=== PATIENT | female | born 1975 | race Two or more races ===

== ENCOUNTER → 2025-02-08 | Outpatient (CLI) | payer BC, SELFPAY ==
[2025-02-08 09:21] LABS: Collection Type, Urine Clean Catch
[2025-02-08 09:40] LABS: Basophils # (Auto) 0.1 Thou/mm3 (0.0-0.2); Basophils % (Auto) 1 % (0-2.5); Eosinophils # (Auto) 0.2 Thou/mm3 (0.0-0.5); Eosinophils % (Auto) 3 % (0-10); Hematocrit 43.4 % (36.0-46.0); Hemoglobin 15.0 g/dL (12.0-16.0); Immature Granulocytes Auto 0.01 Thou/mm3 (0.00-0.00); Lymphocytes # (Auto) 2.3 Thou/mm3 (1.0-4.8); Lymphocytes % (Auto) 36 % (10-50); Mean Corpuscular HGB Conc 34.6 g/dl (31.0-37.0); Mean Corpuscular Hemoglobin 30.2 pg (25.0-35.0); Mean Corpuscular Volume 88 fL (80-100); Monocytes # (Auto) 0.6 Thou/mm3 (0.0-0.8); Monocytes % (Auto) 9 % (0-12); Neutrophils # (Auto) 3.3 Thou/mm3 (1.8-7.7); Neutrophils % (Auto) 51 % (37-80); Nucleated Red Blood Cell # 0.00 Thou/mm3 (0.00-0.00); Nucleated Red Blood Cell % 0 /100 WBC (0); Platelet Count 265 Thou/mm3 (140-440); RDW Standard Deviation 40.4 fL (36.4-46.3); Red Blood Count 4.96 Miln/mm3 (4.00-5.20); White Blood Count 6.5 Thou/mm3 (3.6-11.0)
[2025-02-08 09:46] LABS: Bilirubin,Urine Negative (Negative); Blood,Urine Negative (Negative); Clarity,Urine Clear (Clear/Hazy); Color,Urine Lt-Yellow (Lt Yel-Yel); Culture Indicated,Urine Not Indicated; Glucose, Urine Negative (Negative); Hyaline Casts,Urine < 1 /hpf (0-1); Ketones,Urine Negative (Negative); Leukocyte Esterase,Urine Negative (Negative); Nitrite,Urine Negative (Negative); PH,Urine 7.0 (5.0-7.0); Protein,Urine Negative (Neg - Trace); RBC,Urine 1 /hpf (0-3); Specific Gravity,Urine 1.016 (1.001-1.035); Squamous Epithelial Cell,Urine 1 /hpf (0-5); Urobilinogen,Urine Negative mg/dL (0.0-1.0); WBC,Urine < 1 /hpf (0-5)
[2025-02-08 09:54] LABS: Vitamin D 25 Hydroxy Total 33.5 ng/mL (7.3-40.2)
[2025-02-08 09:57] LABS: Alanine Aminotransferase 46 U/L (10-49); Albumin, Serum 4.6 gm/dL (3.5-5.0); Albumin/Globulin Ratio 1.6 (1.2-2.2); Alkaline Phosphatase 76 U/L (46-116); Anion Gap 7 (7-16); Aspartate Amino Transferase 47 U/L (0-34); BUN/Creatinine Ratio 13 Ratio (12-20); Bilirubin,Total 0.7 mg/dL (0.3-1.2); Blood Urea Nitrogen 10 mg/dL (9-23); Calcium 10.0 mg/dL (8.3-10.6); Calcium (Corrected) 10.0 mg/dL (8.5-10.1); Carbon Dioxide 29.8 mMol/L (20.0-31.0); Cardiac Risk Estimate 3.9 RATIO (3.7-5.6); Chloride 103 mMol/L (98-107); Cholesterol 278 mg/dL (132-200); Creatinine (Component) 0.8 mg/dL (0.6-1.3); Globulin 2.8 gm/dL (2.3-3.5); Glucose 95 mg/dL (74-106); HDL Cholesterol 72 mg/dL (40-60); LDL Cholesterol,Calculated 163 mg/dL (0-130); Osmolality,Calculated 278 (275-295); Potassium 4.1 mMol/L (3.4-5.1); Sodium 140 mMol/L (136-145); Thyroid Stimulating Hormone 3.17 uIU/mL (0.55-4.78); Total Protein 7.4 gm/dL (5.7-8.2); Triglycerides 216 mg/dL (30-150); eGFR > 60 See Note
[2025-02-08 10:05] LABS: Creatinine MALB Rnd Ur 57 mg/dL (30-125); Microalbumin, Random Urine < 3 mg/L (0-300)
== END | disposition home or self-care (01) ==
PROVIDERS: PCP Family Medicine; Referring Provider Family Medicine; Visit Provider Family Medicine
DX: Z00.00 Encounter for general adult medical examination without abnormal findings (principal); I10 Essential (primary) hypertension; Z13.0 Encounter for screening for diseases of the blood and blood-forming organs and certain disorders involving the immune mechanism; Z13.29 Encounter for screening for other suspected endocrine disorder; Z13.21 Encounter for screening for nutritional disorder; Z13.220 Encounter for screening for lipoid disorders; Z13.1 Encounter for screening for diabetes mellitus
CPT/HCPCS: 36415; 80053; 80061; 81001; 82043; 82306; 82570; 84443; 85025